=== PATIENT | male | born 1970 | race Caucasian/White ===

== ENCOUNTER 2022-10-27 23:06 | Inpatient (IN) | payer OTHER ==
[2022-10-28 00:30] VITALS: BMI 25.4
[2022-10-28] MEDS ORDERED: POLYETHYLENE GLYCOL (HEALTHYLAX) 3350 17 GM PACKET PO PRN (00:32)
[2022-10-28] MEDS ORDERED: NALOXONE HCL 0.4 MG/ML VIAL IM PRN (00:32)
[2022-10-28] MEDS ORDERED: MAGNESIUM HYDROX 2400MG/30ML ORAL SUSPENSION 30 ML CUP PO PRN (00:32)
[2022-10-28] MEDS ORDERED: BENZONATATE 200 MG CAPSULE PO PRN (00:32)
[2022-10-28] MEDS ORDERED: BISMUTH SUBSALICYLATE 524 MG/30 ML PO PRN (00:32)
[2022-10-28] MEDS ORDERED: BENZOCAINE/MENTHOL (CHLORASEPTIC ) LOZENGE MM PRN (00:32)
[2022-10-28] MEDS ORDERED: IBUPROFEN 400 MG TABLET (FP) PO PRN (00:32)
[2022-10-28] MEDS ORDERED: DICYCLOMINE HCL 10 MG CAPSULE PO PRN (00:32)
[2022-10-28] MEDS ORDERED: ONDANSETRON *ODT* 4 MG TABLET SL PRN (00:32)
[2022-10-28] MEDS ORDERED: MAG HYDROX/AL HYDROX/SIMETH 30 ML UNIT-DOSE CUP PO PRN (00:32)
[2022-10-28] MEDS ORDERED: guaiFENesin 600 MG TABLET.ER (FP) PO PRN (00:32)
[2022-10-28] MEDS ORDERED: LOPERAMIDE HCL 2 MG CAPSULE PO PRN (00:32)
[2022-10-28] MEDS ORDERED: NICOTINE POLACRILEX 2 MG GUM BUC PRN (00:32)
[2022-10-28] MEDS ORDERED: NALOXONE HCL (KLOXXADO) 8 MG SPRAY NS PRN (00:32)
[2022-10-28] MEDS: hydrOXYzine PAMOATE 25 MG CAPSULE (FP) PO PRN ×2 (02:47→18:06)
[2022-10-28] MEDS: METHOCARBAMOL 500 MG TABLET PO PRN ×4 (02:47→23:17)
[2022-10-28] MEDS ORDERED: methaDONE HCL 10 MG TABLET (FOR DETOX USE ONLY) PO ONE (09:55)
[2022-10-28 10:11] LABS: HEMATOCRIT 33.8 % (35.4-49); HEMOGLOBIN 11.7 GM/dL (11.7-16.9); MCH 30.9 pg (25.7-33.7); MCHC 34.7 g/dl (32.0-35.9); MEAN CELL VOLUME 89.2 fl (80-96); MEAN PLT VOLUME 7.4 fl (7.5-11.1); PLATELET COUNT 242 10^3/uL (134-434); RBC 3.79 M/mm3 (4.00-5.60); RDW 14.8 % (11.9-15.9); WHITE BLOOD COUNT 8.2 K/mm3 (4.0-10.0)
[2022-10-28] MEDS: NICOTINE 21 MG/24 HOURS TOPICAL PATCH TD SCH (10:23)
[2022-10-28] MEDS: PRENATAL VITAMINS W/ FOLIC ACID TABLET (FP) PO SCH (10:25)
[2022-10-28 10:32] LABS: POTASSIUM 3.5 mmol/L (3.5-5.1)
[2022-10-28 10:41] LABS: CALCIUM 8.2 mg/dL (8.5-10.1)
[2022-10-28 10:42] LABS: ALBUMIN 2.7 g/dl (3.4-5.0)
[2022-10-28 10:45] LABS: CREATININE 0.8 mg/dL (0.55-1.3)
[2022-10-28 10:47] LABS: BILIRUBIN,TOTAL 0.2 mg/dL (0.2-1); TOT PROT 5.5 g/dl (6.4-8.2)
[2022-10-28] MEDS: cloNIDine HCL 0.1 MG TABLET PO PRN (18:06)
[2022-10-28] MEDS: MELATONIN 5 MG TABLETS PO SCH (22:23)
[2022-10-28] MEDS: THIAMINE HCL 100 MG TABLET (FP) PO SCH (22:23)
[2022-10-28] MEDS: IBUPROFEN 600 MG TABLET (FP) PO PRN (23:17)
[2022-10-29] MEDS: ACETAMINOPHEN 325 MG TABLET (FP) PO PRN (03:59)
[2022-10-29] MEDS: cloNIDine HCL 0.1 MG TABLET PO PRN ×2 (03:59→19:18)
[2022-10-29] MEDS: METHOCARBAMOL 500 MG TABLET PO PRN ×3 (04:18→21:59)
[2022-10-29] MEDS: hydrOXYzine PAMOATE 25 MG CAPSULE (FP) PO PRN ×2 (07:13→19:17)
[2022-10-29] MEDS: NICOTINE 21 MG/24 HOURS TOPICAL PATCH TD SCH (09:33)
[2022-10-29] MEDS: PRENATAL VITAMINS W/ FOLIC ACID TABLET (FP) PO SCH (09:33)
[2022-10-29 11:38] LABS: PH,URINE 7.5 (5.0-8.0); URINE APPEARANCE CLOUDY; URINE BILIRUBIN NEGATIVE (NEGATIVE); URINE COLOR YELLOW; URINE GLUCOSE (UA) NEGATIVE (NEGATIVE); URINE KETONE NEGATIVE (NEGATIVE); URINE LEUK ESTERASE NEGATIVE (NEGATIVE); URINE NITRITE NEGATIVE (NEGATIVE); URINE PROTEIN NEGATIVE (NEGATIVE); URINE UROBILINOGEN 0.2 mg/dL (0.2-1.0)
[2022-10-29 11:44] LABS: EPI CELLS 1 /uL (0-25.1); HYALINE CASTS 0 /uL (0-3.1); URINE BACTERIA 31 /uL (0-1359); URINE RBC 1 /uL (0-23.9); URINE WBC 0 /uL (0-25.8)
[2022-10-29] MEDS: diazePAM 5 MG TABLET PO PRN ×3 (13:56→22:01)
[2022-10-29] MEDS: IBUPROFEN 600 MG TABLET (FP) PO PRN (19:17)
[2022-10-29] MEDS ORDERED: LIDOCAINE 5% TOPICAL PATCH TP ONE (19:39)
[2022-10-29] MEDS: MELATONIN 5 MG TABLETS PO SCH (21:59)
[2022-10-29] MEDS: THIAMINE HCL 100 MG TABLET (FP) PO SCH (21:59)
[2022-10-30] MEDS: LIDOCAINE PATCH REMOVAL MC SCH ×2 (00:04→21:51)
[2022-10-30] MEDS: cloNIDine HCL 0.1 MG TABLET PO PRN ×3 (01:20→21:51)
[2022-10-30] MEDS: hydrOXYzine PAMOATE 25 MG CAPSULE (FP) PO PRN ×2 (05:52→21:51)
[2022-10-30] MEDS: METHOCARBAMOL 500 MG TABLET PO PRN ×2 (05:52→21:54)
[2022-10-30] MEDS: IBUPROFEN 600 MG TABLET (FP) PO PRN ×2 (05:52→15:28)
[2022-10-30] MEDS ORDERED: methaDONE HCL 10 MG TABLET (FOR DETOX USE ONLY) PO ONE (10:00)
[2022-10-30] MEDS: PRENATAL VITAMINS W/ FOLIC ACID TABLET (FP) PO SCH (10:01)
[2022-10-30] MEDS: NICOTINE 21 MG/24 HOURS TOPICAL PATCH TD SCH (10:04)
[2022-10-30] MEDS: amLODIPine BESYLATE 10 MG TABLET (FP) PO SCH (12:37)
[2022-10-30] MEDS ORDERED: LISINOPRIL 10 MG TABLET PO ONE (14:30)
[2022-10-30] MEDS: diazePAM 5 MG TABLET PO PRN ×2 (15:13→21:51)
[2022-10-30] MEDS: MELATONIN 5 MG TABLETS PO SCH (21:52)
[2022-10-30] MEDS: THIAMINE HCL 100 MG TABLET (FP) PO SCH (23:50)
[2022-10-31] MEDS: METHOCARBAMOL 500 MG TABLET PO PRN (04:55)
[2022-10-31] MEDS: IBUPROFEN 600 MG TABLET (FP) PO PRN (04:56)
[2022-10-31 06:56] VITALS: RESP 16
[2022-10-31] MEDS: ACETAMINOPHEN 325 MG TABLET (FP) PO PRN (06:56)
[2022-10-31] MEDS: hydrOXYzine PAMOATE 25 MG CAPSULE (FP) PO PRN (06:56)
[2022-10-31] MEDS ORDERED: diazePAM 5 MG TABLET PO PRN (08:43)
[2022-10-31] MEDS: amLODIPine BESYLATE 10 MG TABLET (FP) PO SCH (09:05)
[2022-10-31] MEDS: PRENATAL VITAMINS W/ FOLIC ACID TABLET (FP) PO SCH (09:05)
[2022-10-31 09:40] VITALS: BP 133/96; PULSE 56; TEMP 97.3
[2022-10-31] MEDS: NICOTINE 21 MG/24 HOURS TOPICAL PATCH TD SCH (10:38)
[2022-11-01] MEDS ORDERED: methaDONE HCL 10 MG TABLET (FOR DETOX USE ONLY) PO ONE (10:00)
== END 2022-10-31 12:38 | disposition left against medical advice (07) | DRG 770 ==
LOC: YASAS 23:06 → Y6N 10-28 02:12
PROVIDERS: ADMIT Allergy & Immunology; ATTEND Allergy & Immunology
PROC: HZ2ZZZZ Detoxification Services for Substance Abuse Treatment (ICD-10-PCS; principal; 2022-10-28)
DX: F11.23 Opioid dependence with withdrawal (principal); F14.20 Cocaine dependence, uncomplicated; F17.210 Nicotine dependence, cigarettes, uncomplicated; F25.9 Schizoaffective disorder, unspecified; F19.282 Other psychoactive substance dependence with psychoactive substance-induced sleep disorder; F19.24 Other psychoactive substance dependence with psychoactive substance-induced mood disorder; M54.50 Low back pain, unspecified; G89.29 Other chronic pain; R63.4 Abnormal weight loss; Z68.25 Body mass index [BMI] 25.0-25.9, adult; Z62.810 Personal history of physical and sexual abuse in childhood; Z59.00 Homelessness unspecified
CPT/HCPCS: 36415; 80053; 81003; 85027; 86780; 87635; Q0162